=== PATIENT | male | born 1990 | race American Indian/Alaskan Native ===

== ENCOUNTER 2016-12-14 06:22 | Emergency (ER) | payer OTHER ==
[2016-12-14 07:42] LABS: Basophils % (Auto) 0.4 % (0.0-1.8); Eosinophils % (Auto) 0.4 % (0.0-4.3); Hematocrit 49.3 % (35.5-45.6); Hemoglobin 16.4 gm/dl (11.8-15.2); Mean Corpuscular HGB Conc 33 % (32-34); Mean Corpuscular Hemoglobin 33 pg (28-32); Mean Corpuscular Volume 100 fl (84-94); Platelet Count 191 K/mm3 (140-440); Red Blood Count 4.94 M/mm3 (3.65-5.03); Red Cell Distribution Width 12.5 % (13.2-15.2); White Blood Count 7.4 K/mm3 (4.5-11.0)
[2016-12-14 07:55] LABS: Alanine Aminotransferase 26 units/L (7-56); Albumin 4.8 g/dL (3.9-5); Albumin/Globulin Ratio 1.3 %; Alkaline Phosphatase 65 units/L (35-129); Anion Gap 24 mmol/L; BUN/Creatinine Ratio 18.18; Bilirubin,Total 1.1 mg/dL (0.1-1.2); Blood Urea Nitrogen 20 mg/dL (9-20); Calcium 9.5 mg/dL (8.4-10.2); Carbon Dioxide 21 mmol/L (22-30); Chloride 98.1 mmol/L (98-107); Glucose 161 mg/dL (75-100); Lipase 20 units/L (13-60); Potassium 4.7 mmol/L (3.6-5.0); Sodium 138 mmol/L (137-145); Total Protein 8.5 g/dL (6.3-8.2)
[2016-12-14 08:11] LABS: Bilirubin,Urine NEG (Negative); Blood,Urine NEG (Negative); Ketones,Urine NEG (Negative); Leukocyte Esterase,Urine NEG (Negative); Nitrite,Urine NEG (Negative); Protein,Urine <15 mg/dL mg/dL (Negative); Urobilinogen,Urine < 2.0 mg/dL (<2.0)
[2016-12-14 08:13] LABS: WBC,Urine < 1.0 /HPF (0.0-6.0)
[2016-12-14] MEDS ORDERED: ZOFRAN IV ONE (13:58)
[2016-12-14] MEDS ORDERED: ALUM-MAG HYDROX-SIMETH 200-200-20MG/5ML PO ONE (13:58)
[2016-12-14] MEDS ORDERED: BENTYL IM ONE (13:58)
[2016-12-14] MEDS ORDERED: PEPCID IV ONE (13:58)
[2016-12-14] MEDS ORDERED: NACL 0.9% 1000 ML 1,000 ML IV ONE (13:58)
[2016-12-14] MEDS ORDERED: NACL ONE (14:16)
--- NOTE | 2016-12-14 14:23 | Emergency Department Report ---
ED Abdominal Pain HPI - General Chief Complaint: Abdominal Pain Stated Complaint: BLOOD IN STOOL/EMESIS Time Seen by Provider: 12/14/16 13:46 Source: patient, RN notes reviewed Mode of arrival: Ambulatory Limitations: No Limitations - History of Present Illness Initial Comments: This is a 26-year-old male, previously unknown to me. He has a past medical history of HIV. He reports his CD4 count was in the 200s, and believes that his viral load is undetectable. He has been HIV positive since . He is on highly active antiretroviral therapy. He denies a history of abdominal surgeries. Patient presents to the ER complaining of diffuse abdominal pain, nausea, vomiting and diarrhea. Abdominal pain is achy, crampy in nature. Increases with palpation, decreases with rest. Emesis was initially the color of his food , then yellow, and bilious. He reports his diarrhea is watery brown, and then had intermittent flecks of black. There is no testicular pain. No irritative or obstructive urinary symptoms. No recent antibiotic use. Symptoms constant. They have been present since this morning. MD Complaint: abdominal pain -: Gradual Location: diffuse Severity: moderate Quality: cramping Consistency: intermittent Improves With: rest Worsens With: movement Associated Symptoms: nausea, vomiting, diarrhea, anorexia. denies: hematemesis - Related Data Previous Rx's Medication Instructions Recorded Last Taken Type Dicyclomine [Bentyl] 10 mg PO QID PRN #20 capsule 12/14/16 Unknown Rx Ondansetron [Zofran Odt] 4 mg PO QID PRN #20 tab.rapdis 12/14/16 Unknown Rx Allergies Allergy/AdvReac Type Severity Reaction Status Date / Time No Known Allergies Allergy Verified 12/14/16 06:35 ED Review of Systems ROS: Stated complaint: BLOOD IN STOOL/EMESIS Other details as noted in HPI Constitutional: denies: fever Eyes: denies: eye discharge ENT: denies: epistaxis Respiratory: denies: cough Cardiovascular: denies: chest pain Gastrointestinal: abdominal pain, nausea, vomiting, diarrhea Genitourinary: denies: urgency, dysuria Musculoskeletal: denies: back pain, joint swelling, arthralgia Skin: denies: rash, lesions Neurological: weakness Psychiatric: denies: anxiety ED Past Medical Hx - Medications Home Medications: Home Medications Medication Instructions Recorded Confirmed Last Taken Type Dicyclomine [Bentyl] 10 mg PO QID PRN #20 capsule 12/14/16 Unknown Rx Ondansetron [Zofran Odt] 4 mg PO QID PRN #20 tab.rapdis 12/14/16 Unknown Rx ED Physical Exam - General Limitations: No Limitations General appearance: alert, in no apparent distress - Head Head exam: Present: atraumatic, normocephalic - Eye Eye exam: Present: normal appearance, EOMI. Absent: nystagmus - ENT ENT exam: Present: normal exam, normal orophraynx, mucous membranes moist, normal external ear exam - Neck Neck exam: Present: normal inspection, full ROM. Absent: tenderness, meningismus - Respiratory Respiratory exam: Present: normal lung sounds bilaterally. Absent: respiratory distress, wheezes, rales, rhonchi, stridor, chest wall tenderness - Cardiovascular Cardiovascular Exam: Present: regular rate, normal rhythm, normal heart sounds. Absent: bradycardia, tachycardia, irregular rhythm, systolic murmur, diastolic murmur, rubs, gallop - GI/Abdominal GI/Abdominal exam: Present: soft, tenderness, normal bowel sounds, other (there is mild diffuse abdominal tenderness, no rebound, guarding or peritoneal signs.) . Absent: distended, guarding, rebound, rigid, pulsatile mass - Rectal Rectal exam: Present: normal inspection, heme (-) stool, other (Brown stool, trace guaiac positive. During rectal examination, I am escorted by nurse Swapna Bennington) - exam: Present: normal inspection, other (normal cremasteric reflex bilaterally.). Absent: testicular tenderness, scrotal swelling External exam: Present: normal external exam, other (escorted by nurse Swapna Bennington) - Extremities Exam Extremities exam: Present: normal inspection, full ROM, normal capillary refill. Absent: tenderness, pedal edema, joint swelling, calf tenderness - Back Exam Back exam: Present: normal inspection, full ROM. Absent: tenderness, CVA tenderness (R), CVA tenderness (L), muscle spasm, paraspinal tenderness, vertebral tenderness - Neurological Exam Neurological exam: Present: alert, oriented X3, normal gait, other (Extraocular movements intact. Tongue midline. No facial droop. Facial sensation intact to light touch in the V1, V2, V3 distribution bilaterally. 5 and 5 strength in 4 extremities.. Sensation is intact to light touch in 4 extremities.). Absent : motor sensory deficit - Psychiatric Psychiatric exam: Present: normal affect, normal mood - Skin Skin exam: Present: warm, dry, intact, normal color. Absent: rash ED Course Vital Signs 12/14/16 12/14/16 06:33 16:00 Temperature 97.8 F Pulse Rate 98 H 98 H Respiratory 22 16 Rate Blood Pressure 126/78 Blood Pressure 118/53 [Left] O2 Sat by Pulse 100 98 Oximetry - Reevaluation(s) Reevaluation #1: 12/14/16 14:22 Differential diagnosis: Enteritis, colitis, diverticulitis, appendicitis, viral syndrome Assessment and plan: 26-year-old male who is HIV positive with a CD4 count in the 200s. He is compliant with anti-retroviral therapy. No recent medication changes. I suspect that the patient most likely has a viral syndrome/ enteritis. However, given his HIV status and relatively low CD4 count, we will obtain a CT scan of the abdomen and pelvis to exclude occult surgical disease. Hemoglobin/hematocrit stable. He will be treated symptomatically. If CT scan does not demonstrate symmetric and disease, he can follow up with outpatient gastroenterology. Reevaluation #2: 12/14/16 15:52 CT scan of the abdomen and pelvis demonstrates no acute disease. The abdomen is soft on repeat examination. The patient is tolerating ice chips reports that he feels improved. He will be discharged with nonnarcotic pain medication , nausea medication, instructions to follow up with outpatient primary care and/ or gastroenterology. Return precautions were extensively reviewed. ED Medical Decision Making - Lab Data Result diagrams: 12/14/16 07:12 12/14/16 07:12 Vital Signs 12/14/16 06:33 Temperature 97.8 F Pulse Rate 98 H Respiratory 22 Rate Blood Pressure 126/78 O2 Sat by Pulse 100 Oximetry Lab Results 12/14/16 12/14/16 12/14/16 Range/Units 07:12 07:12 07:39 WBC 7.4 (4.5-11.0) K/mm3 RBC 4.94 (3.65-5.03) M/mm3 Hgb 16.4 H (11.8-15.2) gm/dl Hct 49.3 H (35.5-45.6) % MCV 100 H (84-94) fl MCH 33 H (28-32) pg MCHC 33 (32-34) % RDW 12.5 L (13.2-15.2) % Plt Count 191 (140-440) K/mm3 Lymph % (Auto) 0.9 L (13.4-35.0) % [place] % (Auto) 8.3 H (0.0-7.3) % Eos % (Auto) 0.4 (0.0-4.3) % Baso % (Auto) 0.4 (0.0-1.8) % Lymph # 0.1 L (1.2-5.4) K/mm3 [place] # 0.6 (0.0-0.8) K/mm3 Eos # 0.0 (0.0-0.4) K/mm3 Baso # 0.0 (0.0-0.1) K/mm3 Seg Neutrophils % 90.0 H (40.0-70.0) % Seg Neutrophils # 6.7 (1.8-7.7) K/mm3 Sodium 138 (137-145) mmol/L Potassium 4.7 (3.6-5.0) mmol/L Chloride 98.1 (98-107) mmol/L Carbon Dioxide 21 L (22-30) mmol/L Anion Gap 24 mmol/L BUN 20 (9-20) mg/dL Creatinine 1.1 (0.8-1.5) mg/dL Estimated GFR > 60 ml/min BUN/Creatinine Ratio 18.18 % Glucose 161 H (75-100) mg/dL Calcium 9.5 (8.4-10.2) mg/dL Total Bilirubin 1.1 (0.1-1.2) mg/dL AST 30 (5-40) units/L ALT 26 (7-56) units/L Alkaline Phosphatase 65 (35-129) units/L Total Protein 8.5 H (6.3-8.2) g/dL Albumin 4.8 (3.9-5) g/dL Albumin/Globulin Ratio 1.3 % Lipase 20 (13-60) units/L Urine Color Yellow (Yellow) Urine Turbidity Clear (Clear) Urine pH 7.0 (5.0-7.0) Ur Specific [place] 1.019 (1.003-1.030) Urine Protein <15 mg/dl (Negative) mg/dL Urine Glucose (UA) Neg (Negative) mg/dL Urine Ketones Neg (Negative) mg/dL Urine Blood Neg (Negative) Urine Nitrite Neg (Negative) Urine Bilirubin Neg (Negative) Urine Urobilinogen < 2.0 (<2.0) mg/dL Ur Leukocyte Esterase Neg (Negative) Urine WBC (Auto) < 1.0 (0.0-6.0) /HPF Urine RBC (Auto) 1.0 (0.0-6.0) /HPF U Epithel Cells (Auto) < 1.0 (0-13.0) /HPF - Radiology Data Radiology results: report reviewed, image reviewed CT scan of the abdomen and pelvis with IV contrast: Normal appendix. Small and large intestine R fluid-filled without significant distention. Most likely mild nonspecific enteritis. Critical care attestation.: If time is entered above; I have spent that time in minutes in the direct care of this critically ill patient, excluding procedure time. ED Disposition Clinical Impression: Abdominal pain Disposition: DISCHARGED TO HOME OR SELFCARE Is pt being admited?: No Does the pt Need Aspirin: No Condition: Stable Instructions: Acute Nausea and Vomiting (ED) Additional Instructions: Laboratory studies were essentially unremarkable. The stool test did demonstrate microscopic blood, which is most likely part of a viral illness of your intestines. Take the pain medication, nausea medication as directed. Follow-up with a primary care doctor, textile screen maker or infectious disease specialist within the next week. Dr. Katz is a local primary care doctor. Dr. Venegas is a local textile screen maker. Dr. pal is a local infectious disease specialist. Return to the ER right away with new pain, worsened pain, migration of pain, fevers or chills, nausea or vomiting, inability to tolerate liquid feeds. Prescriptions: Dicyclomine [Bentyl] 10 mg PO QID PRN #20 capsule PRN Reason: Pain Ondansetron [Zofran Odt] 4 mg PO QID PRN #20 tab.rapdis PRN Reason: Nausea Referrals: PRIMARY CARE, [Primary Care Provider] - 3-5 Days JUANCHO KATZ MD [Staff Physician] - 3-5 Days GIOVANNA PAL MD [Staff Physician] - 3-5 Days BRIDGET VENEGAS MD [Staff Physician] - 3-5 Days
--- NOTE | 2016-12-14 15:42 | Cat Scan Report ---
FINAL REPORT PROCEDURE: CT ABDOMEN PELVIS W CON TECHNIQUE: Computerized axial tomography of the abdomen and pelvis was performed after the IV injection of iodinated nonionic contrast. HISTORY: ABD PAIN N/V COMPARISON: None FINDINGS: Lower Lung leone: No sinificant abnormality seen. Upper Abdomen: The liver, gallbladder, spleen, adrenal glands, pancreas are unremarkable. Kidneys, Ureters and Urinary bladder: No abnormalities are seen. Retroperitoneum: Abdominal aorta appears normal. Nonspecific subcentimeter lymph nodes are seen in the retroperitoneum. No pathologically enlarged lymph nodes are identified. Bowel: No evidence of bowel obstruction ascites or free intraperitoneal gas. The small intestine and large intestine are largely fluid filled without significant distension. Mucosal folds in the proximal jejunum are mildly prominent. I cannot exclude a mild nonspecific enteritis. Normal-appearing appendix is seen in the right lower quadrant. Other: No acute bony abnormalities are identified. IMPRESSION: Fluid filled small and large bowel as described as well as mild mucosal prominence in the proximal jejunum. I cannot exclude a mild nonspecific enteritis. No other abnormalities are seen.
[2016-12-14 16:01] VITALS: BP 118/53
== END 2016-12-14 16:30 | disposition home or self-care (01) ==
LOC: ED 06:22
DX: R10.84 Generalized abdominal pain (principal)
CPT/HCPCS: 36415; 74177; 80053; 81001; 82271; 83690; 85025; 96361; 96372; 96374; 96375; 99284; J0500; J2405; J7030; Q9967